=== PATIENT | female | born 1970 | race Caucasian/White ===

== ENCOUNTER 2022-09-15 12:01 | Emergency (ER) | payer BC, MEDICAID ==
[~2022-09-15] VITALS: Ht 165.1 cm; Wt 65.9 kg
[2022-09-15 12:02] VITALS: BP 118/76; PULSE 105; RESP 22; TEMP 98; O2SAT 100
[2022-09-15] MEDS ORDERED: TETANUS-DIPTH-ACEL PERTUSSIS 0.5ML SYR Tdap IM ONE (13:15)
[2022-09-15] MEDS ORDERED: LIDOCAINE 1% HCL (LOCAL ANESTH.) INJ 20ML MDV ID ONE (13:15)
[2022-09-15] MEDS ORDERED: HYDROcodone-ACET 5/325MG TAB PO ONE (13:15)
[2022-09-15] MEDS ORDERED: CEPH500C PO (13:37)
[2022-09-15] MEDS ORDERED: IBU600T PO (13:37)
[2022-09-15] MEDS ORDERED: MUPI2OIN2 EX (13:37)
== END 2022-09-15 14:23 | disposition home or self-care (01) ==
LOC: ER 12:01 → EDBD 12:01 → ER 14:18
DX: S60.453A Superficial foreign body of left middle finger, initial encounter (principal); Z79.1 Long term (current) use of non-steroidal anti-inflammatories (NSAID); Z79.899 Other long term (current) drug therapy; X58.XXXA Exposure to other specified factors, initial encounter; Y93.89 Activity, other specified; Y92.89 Other specified places as the place of occurrence of the external cause; Y99.8 Other external cause status
CPT/HCPCS: 10120; 73140; 90471; 90715; 99284; J2001